=== PATIENT | female | born 2005 | race African-American/Black ===

== ENCOUNTER 2024-05-21 19:06 | Emergency (ER) | payer MEDICAID, OTHER ==
[~2024-05-21] VITALS: Ht 165.1 cm; Wt 54.0 kg
[2024-05-21 19:19] VITALS: TEMP 98; O2SAT 98
[2024-05-21] MEDS ORDERED: IBUP-2029 MT (19:39)
[2024-05-21] MEDS: IBUPROFEN 600MG TABLET PO ONE (20:14)
[2024-05-21 20:19] VITALS: BP 101/62; PULSE 71; RESP 16; O2SAT 99
== END 2024-05-21 20:20 | disposition home or self-care (01) ==
LOC: ER 19:06
DX: S09.90XA Unspecified injury of head, initial encounter (principal); S40.011A Contusion of right shoulder, initial encounter; M54.50 Low back pain, unspecified; V89.2XXA Person injured in unspecified motor-vehicle accident, traffic, initial encounter; Y93.89 Activity, other specified; Y92.89 Other specified places as the place of occurrence of the external cause; Y99.8 Other external cause status
CPT/HCPCS: 73030; 99283